=== PATIENT | male | born 1955 | race Caucasian/White ===

== ENCOUNTER 2018-12-08 14:43 | Inpatient (IN) | payer MEDICARE, MEDICAID ==
[2018-12-08 15:01] VITALS: BMI 27.0
--- NOTE | 2018-12-08 16:35 | History and Physical Report ---
History of Present Illnes - History of Present Illness Reason for Visit: generalize weakness following debilitating illness History of Present Illness: Patient is a 63-year-old white male with the past medical history for hypertension, hyperlipidemia, atrial fibrillation on eloquence, coronary artery disease status post PCI to the proximal LAD in February 2018, small cell lung cancer in remission status post chemotherapy, moderate to severe emphysema, and a history of tobacco dependency abuse. Patient was admitted to the [facility] for management of NSTMI. Patient subsequently underwent coronary angiogram. Patient was found to have a 50% stenosis to the left mainstem 80% to distal left circumflex artery, 40% to the distal left PAD, and 70% stenosis to the proximal RCA. Patient underwent CABG x2.Patient did have some episodes of atrial fibrillation during his day. However he did convert to a normal sinus rhythm with her prolonged QT interval. Patient became weak and was not able to ambulate well secondary to his illness. It was felt that the patient was an increase fall risk and would benefit from further physical and occupational therapy. Patient did developed some leukocytosis prior to his discharge with a known source. Chest x-ray with negative sputum cultures were pending UA with negative. Patient was started on PO antibiotics. Patient was subsequently transferred to this institution for further rehab services. - Past Medical History Cardiac: AFIB (converted to NSR), CAD (recent NonSTEMI), CHF (Heart Cth showed EF 30% with global hypokinesia), HTN, Hyperlipidemia Pulmonary: COPD Heme/Onc: Cancer (lung SUSAN - small cell carcinoma) - Past Surgical History Past Surgical History: CABG, Cataract Removal, Other (ORIF right ankle fx), Other (port for chemo) - Past Social History Smoke: # pack years (620), Quit Alcohol: None Drugs: None Lives: With Family Domestic Violence: Negative - Health Maintenance Health Maintenance: Cholesterol Influenza Vaccine: Current for this Influenza Season Pneumonia Vaccine: Yes Review of Systems - Review of Systems Constitutional: Weakness. negative: Fever, Chills, Sweats Eyes: negative: pain, vision change, conjunctivae inflammation, eyelid inflammation, redness ENT: negative: Ear Pain, Ear Discharge, Nose Pain, Nose Discharge, Nose Congestion, Mouth Pain, Mouth Swelling, Throat Pain, Throat Swelling Respiratory: Cough (mild nonproductive), Shortness of Breath, SOB with Excertion. negative: Hemoptysis, Pleuritic Pain, Sputum, Wheezing Cardiovascular: negative: Chest Pain, Palpitations, Orthopnea, Edema, Light Headedness Gastrointestinal: negative: Nausea, Vomiting, Abdominal Pain, Diarrhea, Constipation, Melena, Hematochezia Genitourinary: negative: Dysuria, Frequency, Incontinence Musculoskeletal: negative: Back Pain Skin: negative: Rash Neurological: Weakness. negative: Numbness, Incoordination, Change in Speech, Confusion, Seizures - Medications/Allergies Allergies/Adverse Reactions: Allergies Allergy/AdvReac Type Severity Reaction Status Date / Time aspirin Allergy Hives Verified 12/08/18 15:36 Home Medications: Home Medications Amiodarone HCl [Pacerone] 200 mg PO BID 12/08/18 Amoxicillin/Potassium Clav [Augmentin 875-125 Tablet] 1 each PO BID 12/08/18 Atorvastatin Calcium [Lipitor] 80 mg PO DAILY 12/08/18 Clindamycin HCl [Cleocin HCl] 450 mg PO QID 12/08/18 Clopidogrel Bisulfate [Plavix] 75 mg PO DAILY 12/08/18 Docusate Sodium [Colace] 100 mg PO BID 12/08/18 Furosemide 20 mg PO DAILY 12/08/18 Insulin Aspart [Novolog Flexpen] 1 - 4 [place] [address] 12/08/18 Metformin HCl [Metformin ER Osmotic] 500 mg PO 715 12/08/18 Metoprolol Succinate [Toprol Xl] 50 mg PO DAILY 12/08/18 Oxycodone HCl [Roxicodone] 5 mg PO Q4 PRN 12/08/18 Pantoprazole Sodium [Protonix] 40 mg PO DAILY 12/08/18 Potassium Chloride [Klor-Con M20] 20 meq PO DAILY 12/08/18 Exam - Exam Vital Signs: Vital Signs (72 hours) 12/08/18 12/08/18 14:49 14:54 Temperature 98.2 F 98.2 F Pulse Rate [ 68 68 Right] Respiratory 26 H 26 H Rate Blood Pressure 133/61 133/61 [Right Arm] O2 Sat by Pulse 94 94 Oximetry General: Alert, Oriented to Person, Oriented to Place, Oriented to Time, Cooperative, No acute distress HEENT: Atraumatic, PERRLA, EOMI, Mouth Mucous membr. moist/[place], Nose Mucous membr. moist/[place], Hearing Grossly Normal Neck: Normal Range of Motion Carotids: WNL Thyroid: WNL Lungs: Clear to auscultation, Normal air movement, Speaks full Sentences. No: Wheezes, Rales, Rhonchi Cardiovascular: Regular rate, Normal S1, Normal S2, No murmurs. No: Murmur Abdomen: Normal bowel sounds, Soft, No tenderness, No hepatospenomegaly, No masses. No: Distended, Hepatomegaly, Splenomegaly Integumentary: Normal, [place], Warm, Dry Extremities: No clubbing, No cyanosis, No edema, Normal pulses, No tenderness/swelling Neurological: Normal gait, Normal speech, Strength Equal Bilat, Normal tone, Sensation intact, Cranial nerves 3-12 NL, Reflexes 2+ Psych/Mental Status: Mental status NL, Mood NL, Appropriate Affect, Intact Judgment Assessment/Plan - Assessment/Plan (1) Gait disturbance Status: Acute Current Visit: Yes Assessment: Will start PT and OT, patient seems to be ambulating fairly well at this time. He wants to go home but I have encouraged him to stay for a short period for a time (2) CHF (congestive heart failure) Status: Acute Current Visit: Yes Qualifiers: Heart failure type: systolic Assessment: stable (3) History of atrial fibrillation Status: Resolved Current Visit: Yes Assessment: converted during hospitalization (4) CAD (coronary artery disease) Status: Chronic Current Visit: Yes Qualifiers: Coronary Disease-Associated Artery/Lesion type: [place] artery [place] vs. transplanted heart: [place] heart Associated angina: without angina Qualified Code(s): I25.10 - Atherosclerotic heart disease of [place] coronary artery without angina pectoris Assessment: stable. No pain (5) Diabetes type 2, controlled Status: Chronic Current Visit: Yes Qualifiers: Diabetes mellitus moth exterminator insulin use: without moth exterminator use Diabetes mellitus complication status: without complication Qualified Code(s): E11.9 - Type 2 diabetes mellitus without complications VTE Assessment - RISK FACTOR SCORE VTE RISK FACTOR SCORES: AGE OVER 60 YEARS, CONGESTIVE HEART FAILURE OR MYOCARDIAL INFARCTION - RISK VTE MODERATE RISK: SCORE OF 2 (RISK PROXIMAL DVT 2-4%) PROPHYAXIS NEEDED
[2018-12-08] MEDS ORDERED: oxyCODONE HCL 5 MG TABLET PO PRN (18:54)
[2018-12-08] MEDS: DOCUSATE SODIUM 100 MG CAPSULE PO SCH (20:04)
[2018-12-09] MEDS: PANTOPRAZOLE SODIUM 40 MG TABLET.DR PO SCH (06:05)
[2018-12-09] MEDS ORDERED: METOPROLOL SUCCINATE 50 MG TAB.ER.24H PO ONE (07:56)
[2018-12-09] MEDS: metFORMIN HCl 500 MG TABLET PO SCH ×2 (08:07→17:38)
[2018-12-09] MEDS: POTASSIUM CHLORIDE 20 MEQ TABLET.ER PO SCH (08:07)
[2018-12-09] MEDS: METOPROLOL SUCCINATE 50 MG TAB.ER.24H PO SCH (08:07)
[2018-12-09] MEDS: DOCUSATE SODIUM 100 MG CAPSULE PO SCH ×2 (08:07→20:18)
[2018-12-09] MEDS: FUROSEMIDE 20 MG TABLET PO SCH (08:07)
--- NOTE | 2018-12-09 12:30 | Inpatient Progress Note ---
Subjective - Required Recertification Statement I anticipate X number of days because-include discharge plan: 7 days - Review of Systems Events since last encounter: Patient states that he has been doing OK. Ambulating well with no discomfort. No chest pain no pressure noted. No increasing SOB noted. Patient did have some mild ST segment changes on his monitor. EKG with done and did show any irregularity. It was felt that the patient was going in and out of atrial fibrillation. Patient did have some tachycardia up to 1 to 20, 130 with the atrial fibrillation. Patient did have some troponin level drawn. They were noted to be elevated. Patient denies having any chest pain. Objective - Exam Vitals and I&O: Vital Signs Temp 97.4 F L 12/09/18 09:00 Pulse 83 12/09/18 09:00 Resp 20 12/09/18 09:00 BP 129/60 12/09/18 09:00 Pulse Ox 95 12/09/18 09:00 Intake & Output 12/08/18 12/09/18 12/09/18 23:59 11:59 23:59 Intake Total 840 Balance 840 Weight 92.986 kg Intake: Oral 840 Other: Voiding Method Urinal # Voids 0 3 General: Alert, Oriented to Person, Oriented to Place, Oriented to Time, Cooperative Neck: Supple, No JVD Lungs: Clear to auscultation, Normal air movement, Speaks full Sentences Cardiovascular: Normal S1, Normal S2, Irregularly Irregular Abdomen: Normal bowel sounds, Soft, No tenderness Assessment/Plan - Assessment/Plan (1) Gait disturbance Status: Acute Assessment: Continue with PT and OT (2) A-fib Status: Acute Assessment: Did have some A fib while at [facility] but converted to NSR. Appears to be in a fib again. I will talk with jailer chief about anticoagulation therapy this soon after surgery. (3) CAD (coronary artery disease) Status: Chronic Qualifiers: Coronary Disease-Associated Artery/Lesion type: [place] artery [place] vs. transplanted heart: [place] heart Associated angina: without angina Qualified Code(s): I25.10 - Atherosclerotic heart disease of [place] coronary artery without angina pectoris Assessment: Patient is not been having any chest pain. Patient did have 3 serial troponin level drawn which remained stable. Coal Cutter electronic data interchange specialist at the [facility] was contacted. He advised that the elevated troponin levels were probably related to his heart surgery. He with is vied to continue to monitor the patient. (4) Diabetes type 2, controlled Status: Chronic Qualifiers: Diabetes mellitus longterm insulin use: without longterm use Diabetes mellitus complication status: without complication Qualified Code(s): E11.9 - Type 2 diabetes mellitus without complications
[2018-12-09] MEDS ORDERED: ALPRAZolam 0.5 MG TABLET ONE (17:42)
[2018-12-10] MEDS: PANTOPRAZOLE SODIUM 40 MG TABLET.DR PO SCH (05:55)
[2018-12-10 07:13] LABS: SEGMENTED NEUTROPHILS % 77 % (39-79)
[2018-12-10 07:14] LABS: PLT EST. EST. AGREES W/PLT CT; eGFR (Non-African) 54
[2018-12-10] MEDS ORDERED: METOPROLOL SUCCINATE 50 MG TAB.ER.24H PO ONE (07:47)
[2018-12-10] MEDS: metFORMIN HCl 500 MG TABLET PO SCH ×2 (09:09→17:29)
[2018-12-10] MEDS: FUROSEMIDE 20 MG TABLET PO SCH (09:09)
[2018-12-10] MEDS: METOPROLOL SUCCINATE 50 MG TAB.ER.24H PO SCH ×2 (09:09→19:55)
[2018-12-10] MEDS: POTASSIUM CHLORIDE 20 MEQ TABLET.ER PO SCH (09:09)
[2018-12-10] MEDS: DOCUSATE SODIUM 100 MG CAPSULE PO SCH ×2 (09:11→19:57)
[2018-12-10] MEDS: CEPHALEXIN 250 MG CAPSULE PO SCH ×2 (13:20→17:29)
[2018-12-10] MEDS: CLOPIDOGREL BISULFATE 75 MG TABLET PO SCH (19:55)
[2018-12-10] MEDS: AMIODARONE HCL 200 MG TABLET PO SCH (19:55)
[2018-12-10] MEDS: ATORVASTATIN CALCIUM 20 MG TABLET PO SCH (19:56)
[2018-12-11] MEDS: PANTOPRAZOLE SODIUM 40 MG TABLET.DR PO SCH (06:24)
[2018-12-11] MEDS ORDERED: FUROSEMIDE 40 MG TABLET PO ONE (07:19)
[2018-12-11] MEDS: metFORMIN HCl 500 MG TABLET PO SCH ×2 (07:41→17:22)
[2018-12-11] MEDS: DOCUSATE SODIUM 100 MG CAPSULE PO SCH ×2 (07:46→21:49)
[2018-12-11] MEDS: CLOPIDOGREL BISULFATE 75 MG TABLET PO SCH (08:06)
[2018-12-11] MEDS: POTASSIUM CHLORIDE 20 MEQ TABLET.ER PO SCH (08:06)
[2018-12-11] MEDS: AMIODARONE HCL 200 MG TABLET PO SCH ×2 (08:07→21:50)
[2018-12-11] MEDS: FUROSEMIDE 20 MG TABLET PO SCH (08:07)
[2018-12-11] MEDS: METOPROLOL SUCCINATE 50 MG TAB.ER.24H PO SCH ×2 (08:08→21:51)
[2018-12-11 09:55] LABS: BASOPHILS % 0.6 % (0.0-1.5); NEUTROPHILS # 12.2 # k/uL (1.4-7.7)
--- NOTE | 2018-12-11 10:02 | Diagnostic Imaging Report ---
JESS LEYVA [facility] [address] [facility] [address] [address] Report Submission Date: December 11, 2018 9:54:05 AM CDT Patient Study Name: PIPO BARRAZA Date: December 11, 2018 9:29:00 AM CDT Modality Type: DX Gender: M Description: CHEST 1VIEW : 51 Institution: [facility] Physician: JESS LEYVA EXAMINATION: CHEST 1VIEW HISTORY: SUDDEN ONSET CHEST PAIN TODAY (Hx) COMPARISON: None FINDINGS: Median sternotomy wires are intact and well aligned. A right internal jugular approach central venous port terminates in the right atrium. There is no focal consolidation, pleural effusion, or pneumothorax. The cardiomediastinal silhouette is normal. The visible bony thorax is intact. IMPRESSION: No acute pulmonary process. Electronically signed on December 11, 2018 9:54:05 AM CDT by: Catalino STONE
[2018-12-11 10:11] LABS: eGFR (Non-African) 54
[2018-12-11] MEDS: ATORVASTATIN CALCIUM 20 MG TABLET PO SCH (21:51)
[2018-12-12] MEDS: PANTOPRAZOLE SODIUM 40 MG TABLET.DR PO SCH (06:53)
[2018-12-12] MEDS: metFORMIN HCl 500 MG TABLET PO SCH ×2 (06:54→16:54)
[2018-12-12] MEDS: DOCUSATE SODIUM 100 MG CAPSULE PO SCH ×2 (08:43→20:45)
[2018-12-12] MEDS: METOPROLOL SUCCINATE 50 MG TAB.ER.24H PO SCH ×2 (08:45→20:41)
[2018-12-12] MEDS: CLOPIDOGREL BISULFATE 75 MG TABLET PO SCH (08:48)
[2018-12-12] MEDS: POTASSIUM CHLORIDE 20 MEQ TABLET.ER PO SCH (08:48)
[2018-12-12] MEDS: AMIODARONE HCL 200 MG TABLET PO SCH ×2 (08:49→20:44)
[2018-12-12] MEDS: FUROSEMIDE 20 MG TABLET PO SCH (08:49)
[2018-12-12] MEDS: ATORVASTATIN CALCIUM 20 MG TABLET PO SCH (20:43)
[2018-12-13 06:15] LABS: BASOPHILS % 0.4 % (0.0-1.5)
[2018-12-13 06:26] LABS: NEUTROPHILS # 8.2 # k/uL (1.4-7.7)
[2018-12-13] MEDS: PANTOPRAZOLE SODIUM 40 MG TABLET.DR PO SCH (06:37)
[2018-12-13] MEDS: metFORMIN HCl 500 MG TABLET PO SCH ×2 (06:37→16:44)
[2018-12-13] MEDS: DOCUSATE SODIUM 100 MG CAPSULE PO SCH ×2 (08:56→20:28)
[2018-12-13] MEDS: AMIODARONE HCL 200 MG TABLET PO SCH ×2 (09:00→20:28)
[2018-12-13] MEDS: POTASSIUM CHLORIDE 20 MEQ TABLET.ER PO SCH (09:00)
[2018-12-13] MEDS: CLOPIDOGREL BISULFATE 75 MG TABLET PO SCH (09:00)
[2018-12-13] MEDS: METOPROLOL SUCCINATE 50 MG TAB.ER.24H PO SCH ×2 (09:00→20:26)
[2018-12-13] MEDS: FUROSEMIDE 20 MG TABLET PO SCH (09:00)
[2018-12-13] MEDS: ATORVASTATIN CALCIUM 20 MG TABLET PO SCH (20:26)
[2018-12-14] MEDS: PANTOPRAZOLE SODIUM 40 MG TABLET.DR PO SCH (06:29)
[2018-12-14] MEDS: metFORMIN HCl 500 MG TABLET PO SCH ×2 (08:30→17:03)
[2018-12-14] MEDS: POTASSIUM CHLORIDE 20 MEQ TABLET.ER PO SCH (08:31)
[2018-12-14] MEDS: DOCUSATE SODIUM 100 MG CAPSULE PO SCH ×2 (08:31→20:59)
[2018-12-14] MEDS: METOPROLOL SUCCINATE 50 MG TAB.ER.24H PO SCH ×2 (08:32→21:01)
[2018-12-14] MEDS: CLOPIDOGREL BISULFATE 75 MG TABLET PO SCH (08:32)
[2018-12-14] MEDS: AMIODARONE HCL 200 MG TABLET PO SCH ×2 (08:32→20:59)
[2018-12-14] MEDS: FUROSEMIDE 20 MG TABLET PO SCH (08:32)
[2018-12-14] MEDS: ATORVASTATIN CALCIUM 20 MG TABLET PO SCH (21:00)
[2018-12-15] MEDS: PANTOPRAZOLE SODIUM 40 MG TABLET.DR PO SCH (06:13)
[2018-12-15] MEDS: METOPROLOL SUCCINATE 50 MG TAB.ER.24H PO SCH (08:29)
[2018-12-15] MEDS: DOCUSATE SODIUM 100 MG CAPSULE PO SCH (08:29)
[2018-12-15] MEDS: POTASSIUM CHLORIDE 20 MEQ TABLET.ER PO SCH (08:29)
[2018-12-15] MEDS: CLOPIDOGREL BISULFATE 75 MG TABLET PO SCH (08:30)
[2018-12-15] MEDS: metFORMIN HCl 500 MG TABLET PO SCH (08:30)
[2018-12-15] MEDS: AMIODARONE HCL 200 MG TABLET PO SCH (08:30)
[2018-12-15] MEDS: FUROSEMIDE 20 MG TABLET PO SCH (08:30)
[2018-12-15 08:53] VITALS: BP 127/68
--- NOTE | 2018-12-19 07:03 | Discharge Summary ---
Discharge Summary - Discharge [facility] Admission Date: 12/08/18 (SNF) Discharge Date: 12/15/18 (Home) History of Present Illness: Patient is a 63-year-old white male with the past medical history for hypertension, hyperlipidemia, atrial fibrillation on eloquence, coronary artery disease status post PCI to the proximal LAD in February 2018, small cell lung cancer in remission status post chemotherapy, moderate to severe emphysema, and a history of tobacco dependency abuse. Patient was admitted to the [facility] for management of NSTMI. Patient subsequently underwent coronary angiogram. Patient was found to have a 50% stenosis to the left mainstem 80% to distal left circumflex artery, 40% to the distal left PAD, and 70% stenosis to the proximal RCA. Patient underwent CABG x2.Patient did have some episodes of atrial fibrillation during his day. However he did convert to a normal sinus rhythm with her prolonged QT interval. Patient became weak and was not able to ambulate well secondary to his illness. It was felt that the patient was an increase fall risk and would benefit from further physical and occupational therapy. Patient did developed some leukocytosis prior to his discharge with a known source. Chest x-ray with negative sputum cultures were pending UA with negative. Patient was started on PO antibiotics. Patient was subsequently transferred to this institution for further rehab services. Condition at Discharge: Stable Home Medications: Ambulatory Orders Medication Instructions Recorded Amiodarone HCl [Pacerone] 200 mg PO BID 12/08/18 Clopidogrel Bisulfate [Plavix] 75 mg PO DAILY 12/08/18 Docusate Sodium [Colace] 100 mg PO BID 12/08/18 Furosemide 20 mg PO DAILY 12/08/18 Insulin Aspart [Novolog Flexpen] 1 - 4 [place]Q [address] 12/08/18 Metformin HCl [Metformin ER 500 mg PO 715 12/08/18 Osmotic] Pantoprazole Sodium [Protonix] 40 mg PO DAILY 12/08/18 Potassium Chloride [Klor-Con M20] 20 meq PO DAILY 12/08/18 Amiodarone HCl [Pacerone] 200 mg PO BID #60 tablet 12/15/18 Ticagrelor [Brilinta] 90 mg PO BID #60 tablet 12/15/18 Consultations this Visit: None Procedures this Visit: None Allergies/Adverse Reactions: Allergies Allergy/AdvReac Type Severity Reaction Status Date / Time aspirin Allergy Hives Verified 12/08/18 15:36 Discharge Summary: Patient was started on physical and occupational therapy at the time of admission. Patient was noted to be having some intermittent tachycardia. Patient was placed on a monitor and it appeared that he was having some intermittent atrial fibrillation. At times he would have a rapid ventricular response with his pulse rate rising to 120-130. Patient did have troponin level drawn because questionable ST segment changes. These were elevated. Ball Mill Mixer human resources professional at the [facility] was contacted about his elevated troponin levels and intermittent atrial fibrillation. He advised me that is troponin levels were better than what they were at the [facility] and they are probably trending down from his surgery. Patient is metoprolol was increased to try to control his rapid ventricular response a little bit better. Patient was also noted to have an elevated WBC count. Patient did have some erythema and warmth to the left upper extremity felt to be related to a cellulitis starting from an old IV site. Patient was started on cephalexin. Patient did have normalization of his WBC count with improvement with the induration and erythema. Patient diabetes mellitus remain stable during the course of stay with his blood sugar running in the mid 100 range. Patient did not have any hypoglycemic episodes. Patient did complain of some pain in his upper extremities at times. This was felt to be related to his physical therapy. Patient denied that he without any chest pain associated with them. At the time of dismissal patient was ambulating fairly well was felt that the patient could be discharged home in stable condition with outpatient physical therapy.
--- NOTE | 2018-12-19 07:16 | Inpatient Progress Note ---
Subjective - Required Recertification Statement I anticipate X number of days because-include discharge plan: 5 days - Review of Systems Events since last encounter: Patient continues to do well. Patient has been complaining of some mild pain in his upper extremities bilaterally that tend to come and go. Patient denied any chest pain other than associated with his incision. Patient denies any shortness of breath. Appetite has been good. Patient been having dominants. Patient continues to participate with physical therapy well at this time. Objective - Exam Vitals and I&O: Vital Signs Temp 97.2 F L 12/15/18 09:31 Pulse 73 12/15/18 09:31 Resp 18 12/15/18 09:31 BP 127/68 12/15/18 09:31 Pulse Ox 96 12/15/18 08:51 General: Alert, Oriented to Person, Oriented to Place, Oriented to Time, Cooperative Lungs: Clear to auscultation, Normal air movement, Speaks full Sentences, Chest Wall Tenderness (associated with recent surgery) Cardiovascular: Regular rate, Other (Patient appears to be in NSR on monitor. However seems to be going in and out of atrail fib with rapid ventricular response.) Abdomen: Normal bowel sounds, Soft, No tenderness Extremities: No clubbing, No cyanosis, No edema, Normal pulses Skin: Normal, [place], Warm, Dry Neurological: Normal gait, Normal speech, Strength Equal Bilat, Normal tone Psych/Mental Status: Mental status NL, Mood NL, Appropriate Affect, Intact Judgment - Results Results: Laboratory Results WBC 11.30 K/ul (4.00-12.00) 12/13/18 06:00 RBC 3.69 M/ul (3.90-5.20) L 12/13/18 06:00 Hgb 10.8 g/dL (12.0-18.0) L 12/13/18 06:00 Hct 32.5 % (37.0-53.0) L 12/13/18 06:00 MCV 88.0 fl (80.0-100.0) 12/13/18 06:00 MCH 29.1 pg (28.0-34.0) 12/13/18 06:00 MCHC 33.1 g/dL (30.0-36.0) 12/13/18 06:00 RDW 13.9 % (11.3-14.3) 05/08/19 06:00 Plt Count 463 K/mm3 (130-400) H 12/13/18 06:00 Neut % (Auto) 72.6 % (39.0-79.0) 12/13/18 06:00 Lymph % (Auto) 17.0 % (16.0-50.0) 12/13/18 06:00 [place] % (Auto) 8.1 % (0.0-11.0) 12/13/18 06:00 Eos % (Auto) 1.9 % (0.0-6.8) 12/13/18 06:00 Baso % (Auto) 0.4 % (0.0-1.5) 12/13/18 06:00 Neut # (Auto) 8.2 # k/uL (1.4-7.7) H 12/13/18 06:00 Lymph # (Auto) 1.9 # k/uL (0.6-4.0) 12/13/18 06:00 [place] # (Auto) 0.9 # k/uL (0.0-0.9) 12/13/18 06:00 Eos # (Auto) 0.2 # k/uL (0.0-0.6) 12/13/18 06:00 Baso # (Auto) 0.1 # k/uL (0.0-0.5) 12/13/18 06:00 Seg Neutrophils % 77 % (39-79) 12/10/18 06:27 Lymphocytes % 13 % (16-50) L 12/10/18 06:27 Monocytes % 9 % (0-11) 12/10/18 06:27 Eosinophils % 1 % (0-7) 12/10/18 06:27 Platelet Estimate Est. agrees w/plt ct 12/10/18 06:27 Plt Morphology Comment Normal (NORMAL) 12/10/18 06:27 RBC Morph Comment Normal (NORMAL) 12/10/18 06:27 Sodium 136 mmol/L (137-145) L 12/11/18 Unknown Potassium 4.6 mmol/L (3.5-5.1) 12/11/18 Unknown Chloride 102 mmol/L (98-107) 12/11/18 Unknown Carbon Dioxide 26 mmol/L (22-30) 12/11/18 Unknown BUN 24 mg/dL (9-20) H 12/11/18 Unknown Creatinine 1.40 mg/dL (0.66-1.25) H 12/11/18 Unknown Estimated Creat Clear 69 12/11/18 Unknown Est GFR ( Amer) > 60 (60-) 12/11/18 Unknown Est GFR (Non-Af Amer) 54 (60-) L 12/11/18 Unknown Glucose 127 mg/dL (74-106) H 12/11/18 Unknown Calcium 8.9 mg/dL (8.4-10.2) 12/11/18 Unknown Total Bilirubin 0.5 mg/dL (0.2-1.3) 12/11/18 Unknown AST 49 U/L (15-46) H 12/11/18 Unknown ALT 42 U/L (0-50) 12/11/18 Unknown Alkaline Phosphatase 82 U/L (38-126) 12/11/18 Unknown Troponin I 0.080 ng/mL (0.012-0.034) H 12/13/18 06:00 Total Protein 7.3 g/dL (6.3-8.2) 12/11/18 Unknown Albumin 3.5 g/dL (3.5-5.0) 12/11/18 Unknown Assessment/Plan - Assessment/Plan (1) Gait disturbance Status: Acute Assessment: improving (2) A-fib Status: Acute Assessment: IN and out. On amioderone and metoprolol. I have increased metoprolol to help control rate. He seems to be tolerating it well at this time. I have contacted and spoke with Dr. CRYSTAL about the patient. There is some questions about anticoagulation therapy with the patient. Since he is still within the 30 day window of when he has surgery we will not restart Eliquis at this time. (3) CAD (coronary artery disease) Status: Chronic Qualifiers: Coronary Disease-Associated Artery/Lesion type: [place] artery [place] vs. transplanted heart: [place] heart Associated angina: without angina Qualified Code(s): I25.10 - Atherosclerotic heart disease of [place] coronary artery without angina pectoris Assessment: stable. Troponin seem to slowly be trending down. (4) Diabetes type 2, controlled Status: Chronic Qualifiers: Diabetes mellitus parts counterman insulin use: without half-way use Diabetes mellitus complication status: without complication Qualified Code(s): E11.9 - Type 2 diabetes mellitus without complications Assessment: stable
--- NOTE | 2018-12-19 07:25 | Inpatient Progress Note ---
Subjective - Required Recertification Statement I anticipate X number of days because-include discharge plan: 2 days - Review of Systems Events since last encounter: Chest pain. Patient breathing appeared to be stable. Cellulitis to the left upper extremity appeared to be improving. Patient WBC count has normalized. Patient is troponin continue to trend down. Objective - Exam Vitals and I&O: Vital Signs Temp 97.2 F L 12/15/18 09:31 Pulse 73 12/15/18 09:31 Resp 18 12/15/18 09:31 BP 127/68 12/15/18 09:31 Pulse Ox 96 12/15/18 08:51 - Results Results: Laboratory Results WBC 11.30 K/ul (4.00-12.00) 12/13/18 06:00 RBC 3.69 M/ul (3.90-5.20) L 12/13/18 06:00 Hgb 10.8 g/dL (12.0-18.0) L 12/13/18 06:00 Hct 32.5 % (37.0-53.0) L 12/13/18 06:00 MCV 88.0 fl (80.0-100.0) 12/13/18 06:00 MCH 29.1 pg (28.0-34.0) 12/13/18 06:00 MCHC 33.1 g/dL (30.0-36.0) 12/13/18 06:00 RDW 13.9 % (11.3-14.3) 12/13/18 06:00 Plt Count 463 K/mm3 (130-400) H 12/13/18 06:00 Neut % (Auto) 72.6 % (39.0-79.0) 12/13/18 06:00 Lymph % (Auto) 17.0 % (16.0-50.0) 12/13/18 06:00 [place] % (Auto) 8.1 % (0.0-11.0) 12/13/18 06:00 Eos % (Auto) 1.9 % (0.0-6.8) 12/13/18 06:00 Baso % (Auto) 0.4 % (0.0-1.5) 12/13/18 06:00 Neut # (Auto) 8.2 # k/uL (1.4-7.7) H 12/13/18 06:00 Lymph # (Auto) 1.9 # k/uL (0.6-4.0) 12/13/18 06:00 [place] # (Auto) 0.9 # k/uL (0.0-0.9) 12/13/18 06:00 Eos # (Auto) 0.2 # k/uL (0.0-0.6) 12/13/18 06:00 Baso # (Auto) 0.1 # k/uL (0.0-0.5) 12/13/18 06:00 Seg Neutrophils % 77 % (39-79) 12/10/18 06:27 Lymphocytes % 13 % (16-50) L 12/10/18 06:27 Monocytes % 9 % (0-11) 12/10/18 06:27 Eosinophils % 1 % (0-7) 12/10/18 06:27 Platelet Estimate Est. agrees w/plt ct 12/10/18 06:27 Plt Morphology Comment Normal (NORMAL) 12/10/18 06:27 RBC Morph Comment Normal (NORMAL) 12/10/18 06:27 Sodium 136 mmol/L (137-145) L 12/11/18 Unknown Potassium 4.6 mmol/L (3.5-5.1) 12/11/18 Unknown Chloride 102 mmol/L (98-107) 12/11/18 Unknown Carbon Dioxide 26 mmol/L (22-30) 12/11/18 Unknown BUN 24 mg/dL (9-20) H 12/11/18 Unknown Creatinine 1.40 mg/dL (0.66-1.25) H 12/11/18 Unknown Estimated Creat Clear 69 12/11/18 Unknown Est GFR ( Amer) > 60 (60-) 12/11/18 Unknown Est GFR (Non-Af Amer) 54 (60-) L 12/11/18 Unknown Glucose 127 mg/dL (74-106) H 12/11/18 Unknown Calcium 8.9 mg/dL (8.4-10.2) 12/11/18 Unknown Total Bilirubin 0.5 mg/dL (0.2-1.3) 12/11/18 Unknown AST 49 U/L (15-46) H 12/11/18 Unknown ALT 42 U/L (0-50) 12/11/18 Unknown Alkaline Phosphatase 82 U/L (38-126) 12/11/18 Unknown Troponin I 0.080 ng/mL (0.012-0.034) H 12/13/18 06:00 Total Protein 7.3 g/dL (6.3-8.2) 12/11/18 Unknown Albumin 3.5 g/dL (3.5-5.0) 12/11/18 Unknown Assessment/Plan - Assessment/Plan (1) Gait disturbance Status: Acute Assessment: Improving (2) A-fib Status: Acute Assessment: Stable (3) CAD (coronary artery disease) Status: Chronic Qualifiers: Coronary Disease-Associated Artery/Lesion type: [place] artery [place] vs. transplanted heart: [place] heart Associated angina: without angina Qualified Code(s): I25.10 - Atherosclerotic heart disease of [place] coronary artery without angina pectoris Assessment: Stable (4) Diabetes type 2, controlled Status: Chronic Qualifiers: Diabetes mellitus half-way insulin use: without long term care administrator use Diabetes mellitus complication status: without complication Qualified Code(s): E11.9 - Type 2 diabetes mellitus without complications Assessment: Stable (5) Cellulitis of left arm Status: Acute Assessment: improved
== END 2018-12-15 10:47 | disposition home health service (06) | DRG 947 ==
LOC: SOUTH 14:43
PROVIDERS: ADMIT Family Medicine; ATTEND Family Medicine
DX: R53.1 Weakness (principal); I21.4 Non-ST elevation (NSTEMI) myocardial infarction; I50.22 Chronic systolic (congestive) heart failure; L03.114 Cellulitis of left upper limb; T81.41XA Infection following a procedure, superficial incisional surgical site, initial encounter; I11.0 Hypertensive heart disease with heart failure; I48.91 Unspecified atrial fibrillation; J43.9 Emphysema, unspecified; I25.10 Atherosclerotic heart disease of native coronary artery without angina pectoris; R26.89 Other abnormalities of gait and mobility; E11.9 Type 2 diabetes mellitus without complications; E78.5 Hyperlipidemia, unspecified; Z95.1 Presence of aortocoronary bypass graft; Z98.61 Coronary angioplasty status; Z85.118 Personal history of other malignant neoplasm of bronchus and lung; Z92.21 Personal history of antineoplastic chemotherapy; Z98.49 Cataract extraction status, unspecified eye; Z87.891 Personal history of nicotine dependence; Z88.8 Allergy status to other drugs, medicaments and biological substances; Z79.02 Long term (current) use of antithrombotics/antiplatelets; Z79.4 Long term (current) use of insulin; Z79.899 Other long term (current) drug therapy; Z91.81 History of falling; Y84.8 Other medical procedures as the cause of abnormal reaction of the patient, or of later complication, without mention of misadventure at the time of the procedure; Y92.238 Other place in hospital as the place of occurrence of the external cause
CPT/HCPCS: 71045; 80053; 84484; 85025; 99221; A9270; S1016